=== PATIENT | female | born 1995 | race Caucasian/White ===

== ENCOUNTER → 2023-11-16 | Outpatient (REF) | LOC: M EMP 08:04 | PROVIDERS: ATTEND Family Medicine | DX: Z11.52 Encounter for screening for COVID-19 (principal) ==

== ENCOUNTER → 2024-02-02 | Outpatient (REF) | LOC: M EMP 10:08 | PROVIDERS: ATTEND Family Medicine | DX: Z11.52 Encounter for screening for COVID-19 (principal) ==

== ENCOUNTER → 2024-03-01 | Outpatient (CLI) | payer OTHER ==
[2024-03-01 13:34] LABS: BASO % 0.6 % (0.0-1.0); EOS # 0.1 10^3/uL (0.0-0.5); EOS % 1.8 % (0.0-3.0); HEMATOCRIT 42.1 % (36.0-47.0); HEMOGLOBIN 14.1 g/dl (12.0-15.5); LYMPH # 2.2 10^3/uL (1.5-5.0); LYMPH % 35.2 % (24.0-44.0); MEAN CORPUSCULAR HEMOGLOBIN 31.8 pg (27.0-33.0); MEAN CORPUSCULAR HGB CONC 33.5 g/dl (32.0-36.5); MEAN CORPUSCULAR VOLUME 94.8 fl (80.0-96.0); MONO # 0.6 10^3/uL (0.0-0.8); MONO % 9.2 % (2.0-8.0); NEUTROPHILS # 3.3 10^3/uL (1.5-8.5); PLATELET COUNT, AUTOMATED 191 10^3/uL (150-450); RED BLOOD COUNT 4.44 10^6/uL (4.00-5.40); WHITE BLOOD COUNT 6.2 10^3/uL (4.0-10.0)
[2024-03-01 13:58] LABS: ALBUMIN 4.1 G/DL (3.2-5.2); ALKALINE PHOSPHATASE 52 U/L (46-116); ALT/SGPT 13 U/L (7.0-40); AST/SGOT 14 U/L (<34); BLOOD UREA NITROGEN 10 MG/DL (9-23); CALCIUM LEVEL 9.4 MG/DL (8.5-10.1); CARBON DIOXIDE LEVEL 26 MMOL/L (20-31); CHLORIDE LEVEL 110 MMOL/L (98-107); CHOLESTEROL LEVEL 127 MG/DL (<200); CREATININE FOR GFR 0.87 MG/DL (0.55-1.30); GLOMERULAR FILTRATION RATE > 60.0 (>60); GLUCOSE, FASTING 87 MG/DL (60-100); HDL CHOLESTEROL 46.9 MG/DL (>40); IRON (FE) 102 UG/DL (50-170); LDL CHOLESTEROL 65.9 MG/DL (<100); NON-HDL-C 80.1 MG/DL; PERCENT SATURATION 33.2 % (13.2-45.0); POTASSIUM SERUM 4.6 MMOL/L (3.5-5.1); SODIUM LEVEL 138 MMOL/L (136-145); TOTAL IRON BINDING CAPACITY 307 UG/DL (250-425); TOTAL PROTEIN 7.2 G/DL (5.7-8.2); TRIGLYCERIDES LEVEL 71 MG/DL (<150)
[2024-03-01 13:59] LABS: FREE T4 1.26 NG/DL (0.89-1.76); THYROID STIMULATING HORMONE 0.802 uIU/ML (0.55-4.78)
[2024-03-01 14:00] LABS: FERRITIN 51.2 NG/ML (7.3-270.7)
[2024-03-01 14:09] LABS: HCG, SERUM QUALITATIVE NEGATIVE (NEGATIVE)
== END ==
LOC: M PLALAB 09:35
PROVIDERS: ATTEND Student in an Organized Health Care Education/Training Program
DX: R07.89 Other chest pain (principal)

== ENCOUNTER → 2024-03-01 | Outpatient (REF) | payer OTHER | LOC: M SFHCPLAZ 08:51 | PROVIDERS: ATTEND Student in an Organized Health Care Education/Training Program | DX: J06.9 Acute upper respiratory infection, unspecified (principal) ==

== ENCOUNTER → 2024-03-03 | Outpatient (REF) | LOC: M EMP 10:37 | PROVIDERS: ATTEND Family Medicine | DX: Z11.52 Encounter for screening for COVID-19 (principal) ==

== ENCOUNTER → 2024-03-14 | Outpatient (REF) | LOC: M EMP 14:06 | PROVIDERS: ATTEND Family Medicine | DX: Z11.52 Encounter for screening for COVID-19 (principal) ==

== ENCOUNTER → 2024-03-14 | Outpatient (REF) | LOC: M EMP 14:05 | PROVIDERS: ATTEND Family Medicine | DX: Z11.52 Encounter for screening for COVID-19 (principal) ==

== ENCOUNTER 2024-04-25 14:23 | Emergency (ER) | payer OTHER ==
[~2024-04-25] VITALS: Ht 162.6 cm; Wt 71.8 kg
[2024-04-25] MEDS: KETOROLAC 30 MG/ML 1ML VIAL IV ONE (15:32)
[2024-04-25] MEDS: ACETAMINOPHEN *IV* 1,000 MG in IV 1 EA IV ONE (15:32)
[2024-04-25] MEDS: diazePAM 10MG/2ML SYRINGE IV ONE (15:33)
[2024-04-25] MEDS: LIDOCAINE 5% (LIDODERM) PATCH TD ONE (15:33)
[2024-04-25] MEDS ORDERED: IBUP-1022 PO (16:34)
[2024-04-25] MEDS ORDERED: LIDO5DIS41 TD (16:35)
[2024-04-25 16:40] VITALS: BP 98/57; TEMP 98.2; O2SAT 100
== END 2024-04-25 16:42 | disposition home or self-care (01) ==
LOC: M ED 14:23
DX: M54.50 Low back pain, unspecified (principal); M48.061 Spinal stenosis, lumbar region without neurogenic claudication; F43.10 Post-traumatic stress disorder, unspecified; Z91.040 Latex allergy status; Z88.5 Allergy status to narcotic agent; Z79.1 Long term (current) use of non-steroidal anti-inflammatories (NSAID)
CPT/HCPCS: 96365; 96375; 99283; J0131; J1885

== ENCOUNTER → 2024-06-06 | Outpatient (REF) ==
[~2024-06-06] MED LIST: IBUP-1022 PO; LIDO5DIS41 TD
== END ==
LOC: M EMP 12:51
PROVIDERS: ATTEND Family Medicine
DX: Z01.89 Encounter for other specified special examinations (principal)

== ENCOUNTER → 2024-09-13 | Outpatient (REF) ==
[2024-09-13 11:26] LABS: SOFIA COVID ANTIGEN NEGATIVE (NEGATIVE)
== END ==
LOC: M EMP 10:47
PROVIDERS: ATTEND Family Medicine
DX: Z01.89 Encounter for other specified special examinations (principal)